=== PATIENT | female | born 1935 | race Caucasian/White ===

== ENCOUNTER 2017-07-13 11:54 | Outpatient (CLI) | payer MEDICARE ==
--- NOTE | 2017-07-13 14:04 | RAD ---
SACROILIAC JOINTS 3 VIEWS: HISTORY: Sacroiliitis. FINDINGS: The sacroiliac joints appear to be patent and symmetric. No erosive or destructive change. Vacuum j oint phenomenon in the right SI joint and left SI joint may be present. IMPRESSION: No radiographic evidence of sacroiliitis. POS: [facility]
== END 2017-07-13 11:55 | disposition home or self-care (01) ==
LOC: NAV RAD 11:54
PROVIDERS: ATTEND Internal Medicine Rheumatology
DX: M46.1 Sacroiliitis, not elsewhere classified (principal)
CPT/HCPCS: 72202

== ENCOUNTER 2018-07-05 08:13 | Emergency (ER) | payer MEDICARE ==
--- NOTE | 2018-07-05 09:13 | RAD ---
LEFT FOOT 3 VIEWS: Date: 07/05/18 HISTORY: Bilateral foot pain. FINDINGS: Calcaneal spurs are present. There are arthritic changes of the first metatarsophalangeal joint which are mild. There are also some arthritic changes of the mid foot, mainly related to the distal articu lation of the navicular, with the medial cuneiform. No acute bony changes. IMPRESSION: Arthritic changes of the foot. POS: [facility]
[2018-07-05 09:29] LABS: Anion Gap 17 mmol/L (10-20); BUN (Urea Nitrogen) 35 mg/dL (9.8-20.1); Calc. Creatinine Clearance 0 mL/min (70-130); Calcium 9.9 mg/dL (7.8-10.44); Carbon Dioxide 24 mmol/L (23-31); Chloride 103 mmol/L (98-107); Estimated GFR-MDRD 27; Glucose 137 mg/dL (83-110); Potassium 4.1 mmol/L (3.5-5.1); Sodium 140 mmol/L (136-145); Uric Acid 9.5 mg/dL (2.6-6.0)
--- NOTE | 2018-07-05 10:01 | RAD ---
RIGHT FOOT 3 VIEWS: Date: 07/05/18 HISTORY: Foot pain for 3 days. FINDINGS: Moderate arthritic changes of the first metatarsophalangeal joint are seen. There are also degenerati ve changes of the mid foot and calcaneal spurs present. There are also arthritic changes of the ankle joint. 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 No acute findings. POS: [facility]
== END 2018-07-05 09:56 | disposition home or self-care (01) ==
LOC: NAV ERS 08:13
DX: M10.9 Gout, unspecified (principal); I48.91 Unspecified atrial fibrillation; E11.9 Type 2 diabetes mellitus without complications; K21.9 Gastro-esophageal reflux disease without esophagitis; E78.5 Hyperlipidemia, unspecified; Z79.899 Other long term (current) drug therapy; Z79.01 Long term (current) use of anticoagulants; Z79.84 Long term (current) use of oral hypoglycemic drugs
CPT/HCPCS: 80048; 84550

== ENCOUNTER 2022-03-13 12:49 | Emergency (ER) | payer MEDICARE, OTHER ==
[2022-03-13 14:02] LABS: #Eosinphils 0.2 thou/uL (0.0-0.7); #Lymphocytes 1.1 thou/uL (1.20-3.40); #Monocytes 0.6 thou/uL (0.11-0.59); #Neutrophils 3.6 thou/uL (1.40-6.50); %Basophils 0.9 % (0.0-1.0); %Eosinophils 3.2 % (0.0-10.0); %Lymphocytes 20.4 % (21.0-51.0); %Neutrophils 65.7 % (42.0-75.0); Hemoglobin 9.4 g/dL (12.0-16.0); Mean Corpuscular HGB CONC 30.6 g/dL (32.0-36.0); Mean Corpuscular Hemoglobin 29.6 pg (27.0-31.0); Mean Corpuscular Volume 96.8 fl (78.0-98.0); Mean Platelet Volume 8.6 fL (7.4-10.4); Platelet Count 183 10x3/uL (130-400); RBC Distribution Width 14.3 % (11.5-14.5); Red Blood Cell (RBC) Count 3.16 mill/uL (4.20-5.40); White Blood Cell (WBC) Count 5.5 10x3/uL (4.8-10.8)
[2022-03-13 14:08] LABS: ALT (SGPT) 14 U/L (8-55); AST (SGOT) 19 U/L (5-34); Albumin 3.9 g/dL (3.4-4.8); Alkaline Phosphatase 97 U/L (40-110); Anion Gap 17 mmol/L (10-20); BUN (Urea Nitrogen) 44 mg/dL (9.8-20.1); Bilirubin, Total 1.1 mg/dL (0.2-1.2); Calc. Creatinine Clearance 0 mL/min (70-130); Calcium 9.3 mg/dL (7.8-10.44); Carbon Dioxide 20 mmol/L (23-31); Chloride 106 mmol/L (98-107); Estimated GFR 17; Globulin 3.4 g/dL (2.4-3.5); Glucose 107 mg/dL (83-110); Potassium 5.1 mmol/L (3.5-5.1); Protein, Total 7.3 g/dL (5.8-8.1); Sodium 138 mmol/L (136-145)
== END 2022-03-13 16:05 | disposition home or self-care (01) ==
LOC: NAV ERS 12:49
DX: B34.9 Viral infection, unspecified (principal); E11.9 Type 2 diabetes mellitus without complications; E78.5 Hyperlipidemia, unspecified; K21.9 Gastro-esophageal reflux disease without esophagitis; Z79.899 Other long term (current) drug therapy; Z79.84 Long term (current) use of oral hypoglycemic drugs
CPT/HCPCS: 71045; 80053; 84484; 85025; 85379; 93005